=== PATIENT | female | born 1940 | race Asian ===

== ENCOUNTER 2018-06-11 00:11 | Inpatient (IN) | payer OTHER ==
[2018-06-11] MEDS: SODIUM CHLORIDE 0.9% 1L BAG IV* (04:29)
[2018-06-11 04:41] LABS: URINE BLOOD (Dip) POC 2+ (NEGATIVE); URINE KETONES (Dip) POC Negative (NEGATIVE); URINE LEUKOCYTE EST (Dip) POC 2+ (NEGATIVE); URINE NITRITE (Dip) POC Negative (NEGATIVE); URINE TOTAL PROTEIN POC 2+ (NEGATIVE)
[2018-06-11 05:01] LABS: ADD UMIC YES; UR ASCORBIC ACID NEGATIVE (NEGATIVE); UR BACTERIA MANY /HPF (NONE SEEN); UR BILIRUBIN (Dip) NEGATIVE (NEGATIVE); UR BLOOD (Dip) 2+ mg/dL (NEGATIVE); UR CLARITY CLOUDY (CLEAR); UR COLOR YELLOW (YELLOW); UR GLUCOSE (Dip) 3+ mg/dL (NEGATIVE); UR KETONES (Dip) NEGATIVE (NEGATIVE); UR LEUKOCYTE ESTERASE (Dip) 3+ Leu/ul (NEGATIVE); UR NITRITE (Dip) NEGATIVE (NEGATIVE); UR RBC 22 /HPF (0-5); UR SPECIFIC GRAVITY (Dip) 1.009 (1.003-1.030); UR SQUAMOUS EPITHELIAL CELL MODERATE /HPF (FEW); UR TOTAL PROTEIN (Dip) 2+ mg/dl (NEGATIVE); UR TRANSITIONAL EPI CELL FEW /HPF (NONE SEEN); UR UROBILINOGEN (Dip) NEGATIVE (NEGATIVE); UR WBC > 182 /HPF (0-5)
[2018-06-11 05:02] LABS: ADD MAN DIFF? NO
[2018-06-11 05:06] LABS: WHITE BLOOD COUNT 27.2 10^3/ul (4.8-10.8)
[2018-06-11 05:06] LABS: ABNORMAL IP MESSAGE 1; BASOPHIL # 0.1 10^3/ul (0.0-0.1); BASOPHILS % 0.4 % (0.0-2.0); EOSINOPHILS % 0.1 % (0.0-7.0); HEMOGLOBIN 13.3 g/dl (12.0-16.0); LYMPHOCYTES # 2.3 10^3/ul (0.8-2.9); LYMPHOCYTES % 8.4 % (15.0-51.0); MEAN CORPUSCULAR HEMOGLOBIN 29.9 pg (29.0-33.0); MEAN CORPUSCULAR HGB CONC 33.3 g/dl (32.0-37.0); MEAN CORPUSCULAR VOLUME 89.9 fl (82.0-101.0); MEAN PLATELET VOLUME 10.5 fl (7.4-10.4); MONOCYTE # 1.8 10^3/ul (0.3-0.9); MONOCYTES % 6.5 % (0.0-11.0); NEUTROPHIL # 22.7 10^3/ul (1.6-7.5); NEUTROPHILS % 83.3 % (39.0-77.0); PLATELET COUNT 261 10^3/UL (140-415); RED BLOOD COUNT 4.45 10^6/ul (4.20-5.40); RED CELL DISTRIBUTION WIDTH 12.2 % (11.5-14.5)
[2018-06-11 05:12] LABS: POSITIVE DIFF @See below
[2018-06-11] MEDS: CEFEPIME 2GM/50 ML (PMX) 50 ML IVPB (05:15)
[2018-06-11 05:25] LABS: ALANINE AMINOTRANSFERASE 56 IU/L (13-69); ALBUMIN 4.9 g/dl (3.3-4.9); ALBUMIN/GLOBULIN RATIO 1.19; ALKALINE PHOSPHATASE 70 IU/L (42-121); ANION GAP 18 (5-13); ASPARTATE AMINO TRANSFERASE 55 IU/L (15-46); BILIRUBIN,INDIRECT 0.9 mg/dl (0-1.1); BILIRUBIN,TOTAL 0.9 mg/dl (0.2-1.3); BLOOD UREA NITROGEN 21 mg/dl (7-20); CALCIUM 9.7 mg/dl (8.4-10.2); CARBON DIOXIDE 28 mmol/L (21-31); CHLORIDE 90 mmol/L (97-110); GLUCOSE 267 mg/dl (70-220); POTASSIUM 4.7 mmol/L (3.5-5.1); SODIUM 136 mmol/L (135-144)
[2018-06-11 05:32] LABS: LACTIC ACID 3.4 mmol/L (0.5-2.0)
[2018-06-11 05:36] LABS: TROPONIN-I < 0.012 ng/ml (0.000-0.120)
[2018-06-11] MEDS: ACETAMINOPHEN 325 MG TAB PO (05:51)
[2018-06-11 06:13] LABS: INR 1.08; PROTIME 14.1 Sec (11.9-14.9); PT RATIO 1.1
[2018-06-11 06:14] LABS: PARTIAL THROMBOPLASTIN TIME 32.4 Sec (23.0-35.0)
[2018-06-11] MEDS: VANCOMYCIN 1 GM (PMX) 250 ML IVPB (06:22)
[2018-06-11] MEDS: LEVOFLOXACIN 750MG/D5W (PMX) 150 ML IVPB (08:46)
[2018-06-11] MEDS: ACETAMINOPHEN 500 MG TAB PO (08:46)
[2018-06-11] MEDS: SOD CHLORIDE 0.9% 1,000 ML IV ×3 (08:46→17:12)
[2018-06-11] MEDS ORDERED: ZOLPIDEM 5 MG TAB PO (10:30)
[2018-06-11] MEDS ORDERED: PIPER-TAZO 3.375 GM IV (PMX) 100 ML IVPB ×2 (10:30→16:00)
[2018-06-11] MEDS ORDERED: DOCUSATE SODIUM 100 MG CAP PO (10:30)
[2018-06-11] MEDS ORDERED: NACL 0.9% 3 ML SYG IV (10:30)
[2018-06-11 10:35] LABS: LACTIC ACID 2.4 mmol/L (0.5-2.0)
[2018-06-11] MEDS ORDERED: NORepinephrine 8MG/250 ML (PMX 250 ML IV ×2 (11:00)
[2018-06-11] MEDS: LIDOCAINE 1% (MPF) 5 ML VIAL SC (11:00)
[2018-06-11] MEDS: NORepinephrine 8MG/250 ML (PMX 250 ML IV (11:32)
[2018-06-11] MEDS: FAMOTIDINE 20 MG TAB PO (13:38)
[2018-06-11] MEDS ORDERED: DEXTROSE 50% 50 ML SYRINGE IV ×2 (17:00)
[2018-06-11] MEDS ORDERED: GLUCAGON 1 MG INJ IM (17:00)
[2018-06-11] MEDS ORDERED: GLUCOSE GEL 15 GRAM TUBE BUCCAL (17:00)
[2018-06-11] MEDS ORDERED: GLUCOSE GEL 15 GRAM TUBE PO ×2 (17:00)
[2018-06-11] MEDS: INSULIN ASPART [NOVOLOG] 3 ML PEN SC ×2 (17:36→21:36)
[2018-06-12] MEDS: SOD CHLORIDE 0.9% 1,000 ML IV ×3 (01:22→19:06)
[2018-06-12] MEDS: ACCU-CHEK XX (01:30)
[2018-06-12 05:36] LABS: ABNORMAL IP MESSAGE 1; HEMATOCRIT 31.3 % (37.0-47.0); HEMOGLOBIN 10.3 g/dl (12.0-16.0); MEAN CORPUSCULAR HEMOGLOBIN 29.8 pg (29.0-33.0); MEAN CORPUSCULAR HGB CONC 32.9 g/dl (32.0-37.0); MEAN CORPUSCULAR VOLUME 90.5 fl (82.0-101.0); MEAN PLATELET VOLUME 10.7 fl (7.4-10.4); PLATELET COUNT 173 10^3/UL (140-415); RED BLOOD COUNT 3.46 10^6/ul (4.20-5.40); RED CELL DISTRIBUTION WIDTH 12.4 % (11.5-14.5)
[2018-06-12 05:36] LABS: WHITE BLOOD COUNT 32.6 10^3/ul (4.8-10.8)
[2018-06-12 05:59] LABS: HEMOGLOBIN A1C 9.5 % (0-5.9)
[2018-06-12 05:59] LABS: ANION GAP 12 (5-13); BLOOD UREA NITROGEN 11 mg/dl (7-20); CALCIUM 8.3 mg/dl (8.4-10.2); CARBON DIOXIDE 21 mmol/L (21-31); CHLORIDE 108 mmol/L (97-110); CREATININE 0.64 mg/dl (0.44-1.00); GLUCOSE 188 mg/dl (70-220); POTASSIUM 3.3 mmol/L (3.5-5.1); SODIUM 141 mmol/L (135-144)
[2018-06-12 06:21] LABS: ADD MAN DIFF? YES; POSITIVE DIFF @See below
[2018-06-12] MEDS: FAMOTIDINE 20 MG TAB PO (08:16)
[2018-06-12] MEDS: INSULIN ASPART [NOVOLOG] 3 ML PEN SC ×4 (08:18→20:18)
[2018-06-12 09:42] LABS: ANISOCYTOSIS 1+ (0-0); BAND NEUTROPHILS #M 5.2 10^3/ul (0.0-0.6); BAND NEUTROPHILS % (M) 16 % (0-4); BURR CELLS 2+ (0-0); LYMPHOCYTES #M 1.9 10^3/ul (0.8-2.9); LYMPHOCYTES % (M) 6 % (15-51); METAMYELOCYTES #M 0.3 10^3/ul (0.0-0.0); METAMYELOCYTES %M 1 % (0-0); MONOCYTE #M 2.6 10^3/ul (0.3-0.9); MONOCYTES % (M) 8 % (0-11); PLATELET ESTIMATE NORMAL; POIKILOCYTOSIS 1+ (0-0); POLYCHROMASIA 1+ (0-0); SEG NEUT #M 24.2 10^3/ul (1.6-7.5); SEGMENTED NEUTROPHILS (M) % 69 % (39-77); SMUDGE%M 2 % (0-0); STOMATOCYTES 1+ (0-0)
[2018-06-12] MEDS: POTASSIUM CHLORIDE 20 MEQ POWDER FOR ORAL SOLN GTB (11:03)
[2018-06-12] MEDS: PIPER-TAZO 3.375 GM IV (PMX) 100 ML IVPB ×3 (11:04→17:50)
[2018-06-12] MEDS: ACETAMINOPHEN 325 MG TAB PO (22:07)
[2018-06-13] MEDS: PIPER-TAZO 3.375 GM IV (PMX) 100 ML IVPB ×2 (00:29→05:33)
[2018-06-13] MEDS: ACCU-CHEK XX (01:37)
[2018-06-13] MEDS: SOD CHLORIDE 0.9% 1,000 ML IV ×2 (05:32→21:34)
[2018-06-13] MEDS: INSULIN ASPART [NOVOLOG] 3 ML PEN SC ×4 (07:59→20:27)
[2018-06-13] MEDS: FAMOTIDINE 20 MG TAB PO (08:36)
[2018-06-13 10:17] LABS: ADD MAN DIFF? NO
[2018-06-13 10:26] LABS: WHITE BLOOD COUNT 23.1 10^3/ul (4.8-10.8)
[2018-06-13 10:26] LABS: BASOPHIL # 0.1 10^3/ul (0.0-0.1); BASOPHILS % 0.3 % (0.0-2.0); EOSINOPHILS # 0.2 10^3/ul (0.0-0.5); HEMOGLOBIN 10.4 g/dl (12.0-16.0); LYMPHOCYTES # 1.3 10^3/ul (0.8-2.9); LYMPHOCYTES % 5.4 % (15.0-51.0); MEAN CORPUSCULAR HEMOGLOBIN 30.1 pg (29.0-33.0); MEAN CORPUSCULAR HGB CONC 33.5 g/dl (32.0-37.0); MEAN CORPUSCULAR VOLUME 89.9 fl (82.0-101.0); MEAN PLATELET VOLUME 10.7 fl (7.4-10.4); MONOCYTE # 1.2 10^3/ul (0.3-0.9); MONOCYTES % 5.2 % (0.0-11.0); NEUTROPHIL # 19.8 10^3/ul (1.6-7.5); NEUTROPHILS % 85.8 % (39.0-77.0); PLATELET COUNT 190 10^3/UL (140-415); RED BLOOD COUNT 3.45 10^6/ul (4.20-5.40); RED CELL DISTRIBUTION WIDTH 12.5 % (11.5-14.5)
[2018-06-13] MEDS: LEVOFLOXACIN 750MG/D5W (PMX) 150 ML IVPB (11:48)
[2018-06-13] MEDS: ACETAMINOPHEN 325 MG TAB PO ×2 (15:21→23:53)
[2018-06-13] MEDS: ONDANSETRON 4 MG INJ IV (23:53)
[2018-06-14] MEDS: ACCU-CHEK XX (01:46)
[2018-06-14 05:55] LABS: ADD MAN DIFF? NO
[2018-06-14 05:59] LABS: WHITE BLOOD COUNT 17.3 10^3/ul (4.8-10.8)
[2018-06-14 05:59] LABS: BASOPHIL # 0.1 10^3/ul (0.0-0.1); BASOPHILS % 0.3 % (0.0-2.0); EOSINOPHILS # 0.4 10^3/ul (0.0-0.5); EOSINOPHILS % 2.5 % (0.0-7.0); HEMOGLOBIN 10.7 g/dl (12.0-16.0); LYMPHOCYTES # 1.9 10^3/ul (0.8-2.9); LYMPHOCYTES % 11.2 % (15.0-51.0); MEAN CORPUSCULAR HEMOGLOBIN 29.7 pg (29.0-33.0); MEAN CORPUSCULAR HGB CONC 33.4 g/dl (32.0-37.0); MEAN CORPUSCULAR VOLUME 88.9 fl (82.0-101.0); MEAN PLATELET VOLUME 10.5 fl (7.4-10.4); MONOCYTE # 1.3 10^3/ul (0.3-0.9); MONOCYTES % 7.3 % (0.0-11.0); NEUTROPHIL # 13.5 10^3/ul (1.6-7.5); NEUTROPHILS % 77.8 % (39.0-77.0); PLATELET COUNT 208 10^3/UL (140-415); RED CELL DISTRIBUTION WIDTH 12.3 % (11.5-14.5)
[2018-06-14] MEDS: FAMOTIDINE 20 MG TAB PO (08:42)
[2018-06-14] MEDS: INSULIN ASPART [NOVOLOG] 3 ML PEN SC ×3 (09:16→17:56)
[2018-06-14] MEDS: SOD CHLORIDE 0.9% 1,000 ML IV (11:14)
== END 2018-06-14 18:01 | DRG 872 ==
LOC: ICU 15:57 → 6WM 06-12 17:19 → E/R 00:11 → 6WM 06-12 23:05 → ICU 08:23
PROVIDERS: Internal Medicine
DX: A41.9 Sepsis, unspecified organism (principal); N39.0 Urinary tract infection, site not specified; R30.0 Dysuria; I10 Essential (primary) hypertension; E11.9 Type 2 diabetes mellitus without complications; E78.5 Hyperlipidemia, unspecified; B96.20 Unspecified Escherichia coli [E. coli] as the cause of diseases classified elsewhere; Z79.82 Long term (current) use of aspirin; Z79.84 Long term (current) use of oral hypoglycemic drugs
CPT/HCPCS: 36569; 71045; 76937; 80048; 80053; 81001; 81003; 82962; 83036; 83605; 84484; 85025; 85610; 85730; 87040; 87081; 87086; 87400; 93005; 96365; 96366; 97116; 97162; 97530; 99291-25